=== PATIENT | female | born 1940 | race Caucasian/White ===

== ENCOUNTER 2020-08-12 12:02 | Emergency (ER) | payer OTHER ==
[~2020-08-12] VITALS: Ht 167.6 cm; Wt 72.6 kg
[2020-08-12] MEDS ORDERED: APAP650 PO (14:28)
[2020-08-12] MEDS ORDERED: DECARA1250 MCG PO (14:29)
[2020-08-12] MEDS ORDERED: DIVALPROEX SOD125 MG PO (14:29)
[2020-08-12] MEDS ORDERED: NORCO 5-325 TA1 EAC2 PO (14:30)
[2020-08-12] MEDS ORDERED: HYDROCHLOROTH12.5 M2 PO (14:30)
[2020-08-12] MEDS ORDERED: LEVO-T50 MCG PO (14:31)
[2020-08-12] MEDS ORDERED: MELATONIN3 M1 PO (14:31)
[2020-08-12] MEDS ORDERED: REMERON 30 MG T30 M1 PO (14:31)
[2020-08-12] MEDS ORDERED: MIRALAX119 GM PO (14:33)
[2020-08-12] MEDS ORDERED: FLOMAX0.4 MG PO (14:34)
[2020-08-12] MEDS ORDERED: SEROQUEL 50 MG50 M1 PO (14:34)
[2020-08-12 21:49] VITALS: BP 115/66
== END 2020-08-12 21:50 ==
LOC: ER 12:02
DX: F91.1 Conduct disorder, childhood-onset type (principal); R41.82 Altered mental status, unspecified; F41.9 Anxiety disorder, unspecified; Z79.899 Other long term (current) drug therapy; Z20.828 Contact with and (suspected) exposure to other viral communicable diseases

== ENCOUNTER 2020-08-12 22:51 | Inpatient (IN) | payer OTHER ==
[~2020-08-12] VITALS: Ht 157.5 cm; Wt 47.6 kg
--- NOTE | ~2020-08-12 | D ---
[facility] [address] [place] [address] DISCHARGE SUMMARY Name: WES TARANGO Room #: 518B-B DIS IN M.R.#: [id number] Admission: 08/12/20 Attend Phys: Leonel Greer DO Discharge: 08/21/20 Date of : 42 Report #: [id number] THIS REPORT FOR: cc: Lv Doan MD, Jonathan T. MD Kerstein,Leonel Sands DO ~ DATE OF SERVICE: 08/21/2020 INPATIENT PSYCHIATRIC DISCHARGE SUMMARY ATTENDING PSYCHIATRIST: Leonel Greer DO. TECHNICIAN ASSISTANT: Armen Barger MD DISCHARGE DIAGNOSES: Major neurocognitive disorder, likely due to Alzheimer's disease with behavioral disturbance. She was quite advanced, I would say at least a stage on a GDS, some improvement with behavioral disturbance. ADDITIONAL COMORBIDITIES: As follows, recent anterior cervical diskectomy and fusion on 07/17/2020, history of urinary retention, UTI. She has 6 more doses of cephalexin remaining. History of chronic left lower extremity DVT, hypothyroidism, question of Parkinson's disease, history of pleural effusion, chronic lymphedema, history of Raynaud's syndrome, history of left bundle branch block. DISCHARGE PLAN: The patient is being discharged to skilled memory care at [facility]. Psychiatric and medical care by receiving facility. DISCHARGE MEDICATIONS: As follow: Cephalexin monohydrate 500 mg q. 6 hours for 6 more doses; Depakote Sprinkles 375 mg p.o. b.i.d.; mirtazapine 15 mg p.o. at bedtime for sleep and appetite; Seroquel 75 mg at 0800, 1200, and 1700 for psychosis and mood stabilization and 100 mg p.o. at 2200 for sleep and mood stabilization. Also 2000 mcg oral daily of vitamin D3, hydrochlorothiazide 12.5 mg p.o. daily. She is on hydrocodone 5/325 one p.o. q. 4 hours p.r.n. for pain; levothyroxine 50 mcg oral daily; ____ mg p.o., best given daily, hold if diarrhea; tamsulosin 0.4 mg p.o. daily. LABORATORY DATA: Recent laboratories done in this facility include on 08/20/2020, H and H 12.3 and 37.9, white count 6.9, platelet count 197. The patient's chemistries include sodium 145, potassium 3.5, chloride 107, bicarbonate 29, anion gap 9, BUN 22, creatinine 0.9, estimated GFR 61, estimated average glucose 128. Hemoglobin A1c 6.1, calcium 9.5, magnesium 2.1. TSH 1.718. Urinalysis showed 1+ protein, trace ketones, positive nitrites, greater than 25 wbc's. The urine was not cultured, but she was treated for UTI. Depakote level on 08/17/2020 was 55. COVID-19 PCR serology on 08/18/[address] [address] DISCHARGE SUMMARY Name: WES TARANGO Room #: 518B-B ADDIS IN Alex#: [id number] Admission: 08/12/20 Attend Phys: Leonel Greer, DO Discharge: 08/21/20 Date of : 42 Report #: [id number] ACTIVITY LEVEL: She is up with assist. DIET: She is on pureed diet with honey thickened liquids. REASON FOR ADMISSION: Back on 08/12/2020 is as follows: A 79-year-old female sent from [facility]. She is in independent living at [facility]. She has been there from 08/03/2020 or so. Apparently, it sounds like more of a weakness, delirium, on admission to [facility], unclear if she had dementia and so she was sent here for evaluation of dementia and stabilization. HOSPITAL COURSE: The patient was admitted to Geriatric Psychiatry Unit. The patient required a lot of redirection and frequent use of a lap ross. She failed making full cognitive improvements, was oriented to self, generally not to day, place or time. She would have odd movements of her legs in the Catarina chair. At this point, she had been working with physical therapy and ____ wanted to give her shot in their skilled facility, which is reasonable. A telephonic family meeting was held with her and it was discussed there is a significant possibility that she would require ongoing memory care. CONDITION AT DISCHARGE: Stable. PHYSICAL EXAMINATION: VITAL SIGNS: On the day of discharge, temperature 36.5, pulse 80, respirations 18, BP 115/53, O2 sat 100%. MUSCULOSKELETAL: Seated in chair, appearing somewhat frail. MENTAL STATUS EXAMINATION: This is a well-developed, ill-appearing female appearing her stated age. Attention limited. Concentration limited. Speech is normal in rate, volume and tone. Thought process is linear and limited. Thought content: Fair poverty of thought. ____ psychomotor agitation, psychomotor retardation. Denied SI or HI. Denied auditory, visual, or tactile hallucinations. Memory known to be impaired, but not formally tested. Insight limited. Judgment impaired. Fund of knowledge is well below average. PROGNOSIS: For this patient is guarded given her decline since early July. By: [id number] Leonel Greer DO /nt
[2020-08-12 20:30] VITALS: BP 131/59
[~2020-08-12 22:51] MED LIST: APAP650 PO; DECARA1250 MCG PO; DIVALPROEX SOD125 MG PO; FLOMAX0.4 MG PO; HYDROCHLOROTH12.5 M2 PO; LEVO-T50 MCG PO; MELATONIN3 M1 PO; MIRALAX119 GM PO; NORCO 5-325 TA1 EAC2 PO; REMERON 30 MG T30 M1 PO; SEROQUEL 50 MG50 M1 PO
--- NOTE | 2020-08-13 04:30 | NUR ---
Assumed care of patient this evening. Patient transferred from emergency room via gurny to [facility]. Patient alert to self only and mildly sedated. Patient transferred to bed with assist x2. Patient is unable to answer most questions at this time. Patients vital signs appear stable. Assessment shows clear breath sounds, active bowel sounds and s1 s2 heard with auscultation. Patient denies pain. Affect is variable. We will continue to monitor per hospital policy.
[2020-08-13 09:09] VITALS: BP 118/48
--- NOTE | 2020-08-13 10:39 | NUR ---
PATIENT WAS IN BED ASLEEP WHEN CARE ASSUMED THIS MORNING. WHEN AWAKEN, PATIENT BECAME RESTLESS, IRRITABLE, CONSTANTLY ATTEMPTING TO CLIMB OVER THE BEDRAILS. REQUIRES CONSTANT REDIRECTION BY STAFF. MORNING MEEDICATION GIVEN CRUSHED IN APPLE SOURCE, WELL TOLERATED. PATIENT IS ALERT, TO SELF, FORGETFUL, VERY CONFUSED, MUMBLE WORDS, DIFFICULTY TO BE UNDERSTOOD. [facility]FF, LAP HARRY APPLIED TO AVOID FALL. PATIENT NEED ASSIST OF STAFF WITH ADL, STAFF FED BREAKFAST, APPETITE IS FAIR, SHE TOOK A FEW BITES, HAD SMALL FORMED BOWEL MOVEMENT THIS MORNING, GOOD PERICARE GIVEN BY TWO STAFF. OLD SURGICAL SITE TO RIGHT NECK INTACT. PATIENT IS CALMING DOWN AT THIS TIME, TAKING A NAP. NO SIGN OF ACUTE DISTRESS NOTED, WILL MONITOR FOR SAFETY.
[2020-08-13 20:11] VITALS: BP 130/107
--- NOTE | 2020-08-14 04:27 | NUR ---
Assumed care on 08/13/20, seated in zoe chair, disrobing periodocally, redressed and when spoken to, does not seem to understand. A&Ox1 to person only. When called, said helbarbara, then after that mumbled occasionally during the conversation. Cooperated with assessment, breathing deeply when requested, Lung sounds clear bilat, HRRR, ABD normoactive bowel sounds over a soft abdomen. Took meds crushed in pudding without difficulty. Retired to bed @ and has slept well overnight.
[2020-08-14 04:34] VITALS: BP 130/107
--- NOTE | 2020-08-14 07:01 | NUR ---
At 0630 B/P 120/35 82, PRIYANK held, oncomming nurse advised of B/P.
[2020-08-14 07:20] VITALS: BP 122/38
[2020-08-14 10:03] LABS: HEMATOCRIT 39.3 % (37.0-47.0); HEMOGLOBIN 13.1 gm/dL (12.0-15.0); MCH 30.1 pg (26.0-34.0); MCHC 33.3 g/dL (28.0-37.0); MCV 90.3 fL (80.0-100.0); RBC 4.35 mil/uL (4.20-5.00); RDW 14.5 % (10.5-14.5); WBC 7.3 thou/uL (4.0-11.0)
[2020-08-14 10:10] LABS: CALCIUM 9.3 mg/dL (8.5-10.1); POTASSIUM 3.7 mmol/L (3.5-5.1)
[2020-08-14 10:18] VITALS: BP 122/79
--- NOTE | 2020-08-14 13:15 | NUR ---
Patient has required total assist with breakfast and lunch. Staff reports that patient was able to eat Regular diet, thin liquids for breakfast without swallowing issues and was primarily slow eating. This nurse assisted patient with lunch. Patient ate approximately 30% when patient started to cough. Copious amounts of mucous was coughed up with small amount of chewed up food particles. Patient also having difficulty drinking thin liquids. Patient needed several reminders of chewing and appeared to be getting tired during process of chewing. MD notified. Order obtained for Puree diet and ST eval.
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
--- NOTE | 2020-08-14 17:17 | NUR ---
1700 RESUMMED CARE FROM OVERNIGHT SHIFT THIS AM, PATIENT IN JOELLEN CHAIR DAY ROOM QUIET. PATIENT WIGGLY RESTLESS IN CHAIR PATIENT ORIENTED TO SELF ONLY. PATIENTS ABDOMEN SOFT FLAT BOWEL SOUNDS PRESENT LUNGS CLEAR. PATIENT UNABLE TO TELL ME ABOUT SI/HI/AH/VH AT PRESENT. PATIENT TAKES MEDICATION CRUSHED IN APPLESAUCE. PATIENT QUIET COOPERATIVE WILL CONTINUE TO MONITOR PATIENT FOR SAFETY AND BEHAVIORS.
[2020-08-14 19:42] VITALS: BP 118/68
--- NOTE | 2020-08-15 04:28 | NUR ---
Assumed care of pt @ 1900. Pt calm et cooperative this shift. Took medications crushed in pudding without difficulty. Ambulates with assistance of gerichair. VSWNL. Health assessment with no abnormalities noted at present time. Unable to assess SI/HI/AVH due to confusion but pt does not demonstrate any signs or symptoms of acute emotional distress at present time. Currently resting in gerichair in dayroom with eyes closed. Will continue to monitor per unit protocol.
[2020-08-15 07:50] VITALS: BP 148/60
--- NOTE | 2020-08-15 09:41 | NUR ---
Care assumed of patient at 0715: Patient seated in zoe chair, in dayroom at start of shift. Patient alert and oriented to person only. Confused and forgetful. Restless in chair. Cooperative with assessment. Took AM medication crushed without issue. Ate 100% breakfast with total assist from staff. Incontinent of bowel and bladder. Cooperative with audrey care, linen change and barrier cream application. [place] areas observed to coccyx. Pressure relieving cushion placed under patient in zoe chair. Attempted to lay patient down to relieve pressure from buttock. Patient attempting to get out of bed several times, independently. Patient is a high fall risk. Currently resting with eyes closed in dayroom with staff supervision.
--- NOTE | 2020-08-15 16:06 | H ---
[facility] [address] [place] [address] HISTORY AND PHYSICAL Name: WES TARANGO Room #: 518B-B ADM IN M.R.#: [id number] Admission: 08/12/20 Attend Phys: Leonel Greer DO Discharge: Date of : 42 Report #: [id number] THIS REPORT FOR: cc: Lv Doan MD,Leonel Michaels MD, DO ~ CC: Leonel Doan DATE OF SERVICE: 08/13/2020 INPATIENT PSYCHIATRIC EVALUATION ATTENDING PSYCHIATRIST: Leonel Greer DO POWER DISTRIBUTION ENGINEER: Calli Colin, nurse practitioner, and Quentin Ray MD, supervising hospitalist. REASON FOR ADMISSION: Rapidly progressive dementing process, agitation, inability to redirect. The patient was referred from the medical admission at [facility]. SOURCES OF INFORMATION: Discussion with yesterday and today and records from [facility]. HISTORY OF PRESENT ILLNESS: This is a 79-year-old female who was admitted to [facility] on 08/03/2020 or so. The patient has had a difficult year. She was admitted for progressive mental status decline at [facility]. As September 2019, she had been treated for behavioral problems including aggression and agitation and was started on Risperdal. In addition, she was admitted to [facility] in June 2020 for generalized weakness, which turned out to be cervical myelopathy. She had a successful decompressive surgery that was done by Dr. Awad. Unfortunately, in rehabilitation after the surgery, her mental status declined. The patient has a fluent aphasia. She has been unable to feed herself as of few days ago and was readmitted to [facility]. PAST MEDICAL HISTORY: Includes hypertension, GERD, hypothyroidism, constipation and insomnia. PSYCHIATRIC HISTORY: Major depressive disorder, anxiety disorder. Also, additional medical history is lymphedema, Raynaud's phenomenon and history of lower extremity DVT, currently chronic. PAST SURGICAL HISTORY: Includes hysterectomy, cholecystectomy and posterior lumbar spinal fusion, remote. [facility] [address] [place] [address] HISTORY AND PHYSICAL Name: HOMERMILAGROSWES Room #: 518B-B ADM IN M.R.#: [id number] Admission: 08/12/20 Attend Phys: Leonel Greer DO Discharge: Date of : 42 Report #: [id number] FAMILY HISTORY: Mother secondary to leukemia. Father from [place] and history of cerebrovascular accident. Son diagnosed with pulmonary fibrosis at age of 50. SOCIAL HISTORY: Unknown that she smokes. 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 No significant smoking history. 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 She and her state recently moved from [place] from the [facility]; however, the told me he was a longtime comparative public speaking professor at [employer]. ALLERGIES: No known allergies. MEDICATIONS: Prior to admission at [facility] include hydrochlorothiazide, melatonin, mirtazapine, levothyroxine, polyethylene glycol, tamsulosin, Depakote DR 125 p.o. b.i.d., alprazolam, and cephalexin. It looks like but don't know if they actually got done, but they were discussing MRI of the brain, EEG and consider lumbar puncture. She was diagnosed with idiopathic catatonia, chronic constipation and urinary retention, seen by Lv Doan, I believe his Neurology. In any event, she and her live in an independent living at [facility]. She has significant difficulty with her activities of daily living. Hoping also would be some lab work available from [facility], but unfortunately not seen any at this moment in time. She had an EKG that showed sinus tachycardia at 108. Labs from 08/04/2020 with sodium 134, potassium 4.0, creatinine 0.8, BUN 10, lactic acid 1.1. Chest x-ray on 08/03/2020, mild haziness of the left lung base, possible secondary to small amount of atelectasis, ground-glass infiltrate. CT head with no acute intracranial abnormalities, chronic left frontal infarct, mild sequelae, and chronic microvascular ischemia. Ultrasound of lower left extremity, no thrombus identified. REVIEW OF SYSTEMS: Not obtainable. PHYSICAL EXAMINATION: Seated in a Catarina chair, lap ross in place, raising her legs to her head, not really in any kind of routine. There is another MRI from 08/04/2020 revealed no evidence of acute or subacute ischemia, mild chronic small vascular ischemic changes, small territory and mild infarct involving the left middle frontal gyrus. MENTAL STATUS EXAMINATION: This is a well-developed, ill-appearing female, frail. Attention fair. Concentration impaired. Speech is normal volume, normal rate, but with pauses. No psychomotor agitation. No psychomotor retardation. Unable to assess well for suicidality, homicidality or auditory, visual, or tactile hallucinations. The patient did not appear to be [facility] [address] [place] [address] HISTORY AND PHYSICAL Name: WES TARANGO Room #: 518B-B ADM IN M.R.#: [id number] Admission: 08/12/20 Attend Phys: Leonel Greer DO Discharge: Date of : 42 Report #: [id number] self-harming. Memory noted to be impaired, insight impaired, judgment impaired. Fund of knowledge well below average. FORMULATION: A 79-year-old female admitted with progressive dementia picture and also some catatonia. DIAGNOSES: At this time, major neurocognitive disorder, likely multifactorial with behavioral disturbance, unspecified psychosis. Medical problems are numerous including recent anterior cervical diskectomy and fusion, history of urinary retention, history of chronic left lower extremity deep vein thrombosis, question of Parkinson's disease, chronic lymphedema and history of left bundle branch block. PLAN: Evaluate, stabilize, and obtain collateral. ESTIMATED LENGTH OF STAY: 10-14 days. Regarding the patient's medications, we will give her mirtazapine 30 mg p.o. at bedtime, melatonin 3 mg p.o. at bedtime, tamsulosin 0.4 mg p.o. daily, Seroquel continued on 50 mg daily, Depakote 125 mg p.o. b.i.d. that I plan to increase as well as the Seroquel. Continue levothyroxine 50 mcg daily, hydrochlorothiazide 12.5 mg p.o. daily, polyethylene glycol 17 g p.o. daily. The patient was COVID-19 negative by PCR. STRENGTHS: She is insured, support family. WEAKNESSES: Rapidly progressive dementia and older age. 60 minutes spent on case- greater than 50% spent on review of records and coordination of care <ELECTRONICALLY SIGNED> By: Leonel Greer DO 08/15/20 1606 [id number] Tavon Greer DO /anders
[2020-08-15 19:34] VITALS: BP 118/49
[2020-08-15 21:46] VITALS: BP 148/60
--- NOTE | 2020-08-16 05:27 | NUR ---
ASSUMED CARE OF PT AT 1900. PT IS A/O TO PERSON AND WAS LYING IN HER BED AT THE START OF THE SHIFT. CONFUSED AND RESTLESS ALL NIGHT. VSS. MEDICATIONS GIVEN PER NOV. BLOOD SUGAR WAS LOW. BLOOD SUGAR RETURNED TO NORMAL LIMIT AFTER PROVIDING SNACKS. AT THIS TIME, PT IS LYING BACK IN HER JOELLEN CHAIR IN THE DINING ROOM APPEARING TO BE ASLEEP. DENIES ANY SI/HI/AVH. WILL CONTINUE TO MONITOR.
[2020-08-16 09:52] VITALS: BP 120/78
--- NOTE | 2020-08-16 10:31 | NUR ---
1030 RESUMMED CARE FROM OVERNIGHT SHIFT THIS AM, PATIENT IN ROOM QUIET. PATIENT WAS TAKEN TO DAYROOM FOR BREAKFAST TOOK MEDICATION CRUSHED IN CREAM OF WHEAT. PATIENTS ABDOMEN SOFT FLAT BOWEL SOUNDS PRESENT PATIENT ORIENTED TO SELF ONLY. PATIENT UNABLE TO TELL ME ABOUT SI/HI/AH/VH AT PRESENT PATIENT CONFUSED AND IS FIDGETTY AT TIMES. PATIENT IN JOELLEN CHAIR WITH LAP HARRY FOR SAFETY. WILL CONTINUE TO MONITOR PATIENT FOR BEHAVIORS AND SAFETY.
[2020-08-16 13:17] LABS: URINE BILIRUBIN NEGATIVE (Negative); URINE BLOOD NEGATIVE (Negative); URINE CLARITY CLEAR; URINE COLOR YELLOW; URINE GLUCOSE-RANDOM* NEGATIVE (Negative); URINE KETONES TRACE (Negative); URINE LEUKOCYTES 1+ (Negative); URINE NITRITE POSITIVE (Negative); URINE PROTEIN (DIPSTICK) 1+ (Negative); URINE SPECIFIC GRAVITY 1.025 (1.005-1.035); URINE UROBILINOGEN 0.2 E.U./dl (0.2-1.0)
[2020-08-16 13:40] LABS: CASTS None Seen /LPF (None Seen); MUCUS 0-3 Light strn/LPF (None Seen); SQUAMOUS 0-3 Few /LPF (0-3)
[2020-08-16 13:41] LABS: BACTERIA >30 Many /HPF (None Seen); CRYSTALS None Seen /LPF (None Seen); URINE RBC 0-2 Rare /HPF (0-2); URINE WBC >25 Many /HPF (0-5)
[2020-08-16 19:36] VITALS: BP 121/61
--- NOTE | 2020-08-17 01:04 | NUR ---
Assumed care of patient this pm shift. Patient confused. Alert and oriented to self only. Mostly nonverbal. Patient takes medications crushed in pudding. Patient is considered a falls risk. Falls precautions in place. Patient does not appear to have hi/si. Vital signs are stable. Assessment shows no signs of acute distress. We will continue to monitor per hospital policy.
[2020-08-17 06:09] VITALS: BP 142/75
[2020-08-17 09:46] VITALS: BP 113/56
--- NOTE | 2020-08-17 13:52 | NUR ---
DIGNA and Dr. Wild participated in a phone call with the Pt's /DPOA, Mr. Hubbard [phone]. An update was given on the Pt and a recommendation for [place] mem care. Another recommendation was respite with [facility] so Pt can be observed a bit longer in an effort to see if behaviors decrease so that Pt can return to [place] with Mr. Hubbard. Mr. Hubbard wanted to try the respite stay first. He was reminded that if Pt is accepeted for respite upon her d/c she will still need 24 hour care. DIGNA will follow up with Lizzeth Duarte. During this call DIGNA also set up a zoom call with Mr. Hubbard to visit with the Pt for 08/18/2020 @ 1400. A zoom link was emailed to [email or web address].
--- NOTE | 2020-08-17 14:04 | NUR ---
DIGNA spoke with Kamini Wallace at [facility], . DIGNA informed Kamini of the request for respite and the recommendation for memory care for the Pt. Kamini asked for a referral to be faxed to [phone]. DIGNA faxed referral
--- NOTE | 2020-08-17 19:40 | NUR ---
Assumed patient care at 0700. patient was resting in the Catarina chair at the dinning room. she was cooperative with care and medication. she was restless most part of the day. she ate her meals with assistance. patient had two bowel movement today. patient vital signs were within normal limits.
--- NOTE | 2020-08-17 20:18 | NUR ---
Returned call to Camacho, pt . Camacho calling for update on pt who is resting quietly in bed with eyes shut, and appears to be sleeping at this time. Camacho states he will call again tomorrow to check on her and voiced no further questions or concerns at this time.
[2020-08-17 20:26] VITALS: BP 127/53
[2020-08-17 20:30] VITALS: BP 127/53
--- NOTE | 2020-08-17 22:17 | NUR ---
Assumed care for pt at 1900. Pt resting quietly in bed with eyes closed and appeared to be sleeping. Shift assessment completed. No s/s of acute distress or pain observed. Pt arrousable and compliant with medications. Pt took medications crushed in yogurt with sips of thin liquid. Vital signs stable. Pt HS blood sugar = 94. Pt currently being treated for UTI. Pt is high fall risk and on fall precautions. Will continue to monitor for any changes and safety per unit protocols.
--- NOTE | 2020-08-18 05:42 | NUR ---
Pt woke up at 0310. Pt stating stomach hurt and she was hungry. Given snack of yogurt and adan crackers; ate 100%. Drank 8 oz diet [place]. Pt pleasantly confused and implusive, easily redirected. Pt assisted to restroom and voided; x-small BM. Pericare completed. Pt has been awake since, but resting in bed. Needs frequent reminders to wait for help before getting up. Fall precautions in place, bed alarm on, bed in low position, yellow shirt/socks, arm band. Pt is oriented to self. Continues on antibiotic for UTI, medication compliant. Pt Hydrochlorothiaizide held at 0600 d/t low BP (118/55). Pt assisted to restroom at 0530. Brief wet and changed at that time. Continue to monitor for safety per protocols.
[2020-08-18 09:02] VITALS: BP 104/45
--- NOTE | 2020-08-18 17:04 | NUR ---
Pt participated in a zoom call with her , Mr. Hubbard. Pt was restless during the call but was able to hold a brief conversation. Pt did express feeeling anxious and not being able to control her body. Pt appeared happy to see Mr. Hubbard and smiled when she recognized him in the video chat.
--- NOTE | 2020-08-18 18:27 | NUR ---
Assumed patient care at 0700. patient was sitting in a Gerichair in the day room. patient was restless most part of the day. patient was cooperative with care and medication. patient vital signs were stable. patient had an active bowel sounds. DUring pericare redness was noted on the patient bottom. barrier cream has been applied to the area. patient was to bed in her room at 1832.
[2020-08-18 20:09] VITALS: BP 150/66
--- NOTE | 2020-08-19 04:36 | NUR ---
08-17-20 CARE TRANSFERRED 0. PT AAOX1, VSS, RR EVEN AND NONLABORED ON RA. PT DENIES ANY PAIN AND SI/HI. PT PRESENTS RESTLESS, SMILING AND COOPERATIVE, PT WAS ALLOWED TO AIR WITH CHUX ONLY, REDNESS IN COCCYX AREA BARRIER CREAM APPLIED. DURING MEDICATION ADMIN PT HAD NO DIFFICULTIES. ZERO S/S OF ACUTE DISTRESS NOTED, PT WILL CONTINUE TO BE MONITOR PER [facility] PROTOCOL.
[2020-08-19 08:00] VITALS: BP 115/52
--- NOTE | 2020-08-19 12:51 | NUR ---
ASSUMED CARE AT 0700 THIS MORNING. PT. ON 1:1 WA DUE TO IMPULSIVITY. SHE WAS ASLEEP AND SLEPT IN BED FOR ABOUT 2.5 HOURS THIS MORNING. SHE THEN WOKE UP, WAS BROUGHT TO THE DINING FROOM FOR LUNCH IN THE RECLINING CHAIR. SHE CONTINUES TO BE IMPULSIVE, RESTLESS. SHE IS EATING WELL. COOPERATIVE WITH TAKING MEDICATIONS CRUSHED AND IN APPLESAUCE OR PUDDING. HER EYES ARE OPEN, BUT SHE IS NOT RESPONDING TO ANY QUESTIONS OF STAFFF. SHE JUST STARES INTO "OUTTER SPACE". SHE WILL "CRY OUT OR MOAN AT TIMES".
[2020-08-19 19:40] VITALS: BP 117/40
[2020-08-19 21:51] VITALS: BP 117/40
--- NOTE | 2020-08-20 03:56 | NUR ---
Assumed care of pt at 1900. Pt up in day room, sitting in gerichair with eyes closed resting at start of the shift. Assessment completed. Pt vital signs WNL, except diastolic BP, which was low (40). Pt assisted with, and encouraged, to drink water/fluids. Pt is medication compliant and took meds crushed in applesauce. Pt shows no s/s of pain or distress. Pt affect is flat. Pt has been calm and cooperative. Pt is incontient of urine and was incontient of bowl x 1 at HS. Pt had medium soft BM. Pericare completed. Pt rested in bed with eyes closed and appeared to be sleeping throughout night. Pt awoke at 0400. Assisted in repositioning in bed. HS accucheck as 168. Pt does not voice an thoughts of SI/HI. Pt is alert to self and is redirectable when she becomes restless. Pt is high fall risk and can be impulsive. Fall precaution protocols in place. Will continue to monitor for any changes and safety.
[2020-08-20 05:16] VITALS: BP 137/61
[2020-08-20 08:04] VITALS: BP 138/60
--- NOTE | 2020-08-20 08:40 | NUR ---
PT SITTING OUT IN DINING ROOM AND EATING BREAKFAST. PT TOOK MEDS IN YOGART. PT TAKING ANTIBIOTIC LIQUID FORM. PT ORIENTED TO SELF. PT NOT ROCKING MUCH IN RECLINER CHAIR. PT SEEMS MORE FOCUSED ON STAFF AND ANSWERING QUESTIONS.
--- NOTE | 2020-08-20 10:00 | NUR ---
ASSISTED PT TO BATHROOM AND PT WAS ABLE TO SIT ON TOLIET WITH STAND-BY ASSIST. PT WAS WIPING SELF FRONT AND BACK. PT HAD SMALL FORMED BM. PT INCONT OF STOOL IN BRIEF. PT NOT ABLE TO TELL NURSING IF GOING TO BATHROOM.
--- NOTE | 2020-08-20 12:10 | NUR ---
PT ABLE TO FEED SELF LUNCH. PT NEEDS HONEY THICKENED LIQUIDS DUE TO ASPIRATING AFTER THIN LIQUIDS.
[2020-08-20 15:38] LABS: ABSOLUTE NEUTROPHILS 5.4 thou/uL (1.4-8.2); BASOPHILS 0.3 % (0.0-2.0); EOSINOPHILS 1.3 % (0.0-3.0); HEMATOCRIT 37.9 % (37.0-47.0); HEMOGLOBIN 12.3 gm/dL (12.0-15.0); MCH 29.8 pg (26.0-34.0); MCHC 32.6 g/dL (28.0-37.0); MCV 91.5 fL (80.0-100.0); MONOCYTES 10.5 % (1.0-8.0); PLATELET COUNT 197 thou/uL (150-400); POLYS 77.9 % (36.0-66.0); RBC 4.14 mil/uL (4.20-5.00); WBC 6.9 thou/uL (4.0-11.0)
[2020-08-20 15:48] LABS: CALCIUM 9.5 mg/dL (8.5-10.1); CREATININE 0.9 mg/dL (0.6-1.0); MAGNESIUM 2.1 mg/dL (1.8-2.4); POTASSIUM 3.5 mmol/L (3.5-5.1)
--- NOTE | 2020-08-20 17:41 | NUR ---
DIGNA spoke with Shannon, , from [facility]. They have accepted the Pt into the memory care [facility]. D/C is set for 08/21/2020 @ 1230. [facility] will provide transportation. Pt's , Mr. Hubbard, was informed via phone call.
[2020-08-20 19:43] VITALS: BP 117/78
--- NOTE | 2020-08-20 22:43 | NUR ---
Assumed care on 08/20/20 @ 19:15, seated in the day room in a zoe chair with a lap ross fastened in the anterior. Takes meds crushed in yogart. Reports back pain and requests pain meds. PRN Hydrocodone 5/325 provided for back and general pain. On follow up noted to be sleeping. Will continue to mointor as per unit protocol for safety and comfort.
[2020-08-20 23:13] VITALS: BP 117/78
[2020-08-21 04:06] LABS: GLYCOHEMOGLOBIN (HGB A1C) 6.1 % (4.8-5.6)
[2020-08-21 09:18] VITALS: BP 115/53
[2020-08-21 09:19] VITALS: BP 115/53
--- NOTE | 2020-08-21 10:23 | NUR ---
08/20/2020 PC to Pt's concerning d/c. SW informed that Pt will be transfered to [facility] for long term. There were no questions or concerns on the matter.
[2020-08-21] MEDS ORDERED: KEFLEX250 MG/5 M PO (11:17)
[2020-08-21] MEDS ORDERED: SEROQUEL 25 MG25 M1 PO (11:18)
[2020-08-21] MEDS ORDERED: REMERON 30 MG T30 M1 PO (11:18)
[2020-08-21] MEDS ORDERED: DEPAKOTE SPRIN125 MG PO (11:18)
[2020-08-21] MEDS ORDERED: SEROQUEL 50 MG50 MG PO (11:19)
[2020-08-21 12:19] VITALS: BP 115/53
--- NOTE | 2020-08-21 12:36 | NUR ---
ASSUMED CARE AT 0700 THIS MORNING. PT. IN RECLINING CHAIR IN THE DINING ROOM. SHE TOOK HER MORNING MEDICATIONS CRUSHED AND IN YOGURT. SHE WAS PLEASANT AND COOPERATIVE WITH RN THIS MORNING. SHE WAS TAKEN PER W/C TO ER EXIT. [employer] PICKED UP PT. AT 1230. REPORT CALLED TO Bobo FELTON. SHE LEFT WITH HER BELONGINGS, D/C PAPERS, SCRIPTS, CLOTHING. THEY DROVE AWAY FROM THE HOSPITAL.
== END 2020-08-21 12:30 | DRG 57 ==
LOC: SBH 22:51
PROVIDERS: Hospitalist; Nurse Practitioner; ADMIT Psychiatry & Neurology Psychiatry; ATTEND Psychiatry & Neurology Psychiatry
PROC: 0T9B70Z Drainage of Bladder with Drainage Device, Via Natural or Artificial Opening (ICD-10-PCS; principal; 2020-08-16)
DX: G30.9 Alzheimer's disease, unspecified (principal); F02.81 Dementia in other diseases classified elsewhere, unspecified severity, with behavioral disturbance; N39.0 Urinary tract infection, site not specified; F29 Unspecified psychosis not due to a substance or known physiological condition; E03.9 Hypothyroidism, unspecified; I73.00 Raynaud's syndrome without gangrene; K21.9 Gastro-esophageal reflux disease without esophagitis; I10 Essential (primary) hypertension; G47.00 Insomnia, unspecified; F06.1 Catatonic disorder due to known physiological condition; G20 Parkinson's disease; M50.30 Other cervical disc degeneration, unspecified cervical region; E78.5 Hyperlipidemia, unspecified; R33.9 Retention of urine, unspecified; F41.9 Anxiety disorder, unspecified; F32.9 Major depressive disorder, single episode, unspecified; Z20.828 Contact with and (suspected) exposure to other viral communicable diseases; Z90.710 Acquired absence of both cervix and uterus; Z90.49 Acquired absence of other specified parts of digestive tract; Z98.1 Arthrodesis status
CPT/HCPCS: 10880